=== PATIENT | male | born 2000 | race Caucasian/White ===

== ENCOUNTER 2022-03-23 04:25 | Day surgery (SDC) | payer BC, OTHER ==
[2022-03-21 12:41] VITALS: BMI 26.1
[2022-03-23] MEDS ORDERED: LIDOCAINE HCL 1%, 10 MG/ML (20ML VIAL) ONE (11:39)
[2022-03-23] MEDS ORDERED: MIDAZOLAM HCL 2 MG/2 ML SINGLE DOSE VIAL ONE ×2 (12:04→12:21)
[2022-03-23] MEDS ORDERED: GLYCOPYRROLATE 0.2 MG/1 ML VIAL ONE (12:05)
[2022-03-23] MEDS ORDERED: ceFAZolin SODIUM 1 GM VIAL ONE (12:20)
[2022-03-23] MEDS ORDERED: SODIUM CHLORIDE 0.9% P/F 10 ML VIAL IJ ONE (12:20)
[2022-03-23] MEDS ORDERED: ceFAZolin SODIUM 1 GM VIAL IVPB ONE ×2 (12:20→12:21)
[2022-03-23] MEDS ORDERED: METHYLENE BLUE 50 MG/10 ML AMPUL ONE (12:25)
[2022-03-23] MEDS ORDERED: PROPOFOL 20 ML ONE (12:28)
[2022-03-23] MEDS ORDERED: LIDOCAINE HCL/PF 2% SDV 5ML VIAL ONE (12:28)
[2022-03-23] MEDS ORDERED: oxyCODONE HCL 5 MG TABLET PO PRN (13:16)
[2022-03-23] MEDS ORDERED: ONDANSETRON 4 MG/2 ML VIAL IVPUSH PRN (13:16)
[2022-03-23] MEDS ORDERED: PROMETHAZINE HCL 25 MG/1 ML VIAL IVPB PRN (13:16)
[2022-03-23] MEDS ORDERED: LACTATED RINGERS SOLUTION 1,000 ML IV SCH (13:30)
[2022-03-23] MEDS ORDERED: ONDANSETRON 4 MG/2 ML VIAL ONE (15:30)
[2022-03-23 18:08] VITALS: BP 120/52; PULSE 66; RESP 16; TEMP 97.8
== END 2022-03-23 16:45 | disposition home or self-care (01) ==
LOC: JASU-SURG 04:25
PROVIDERS: ATTEND Surgery
PROC: 0JB90ZZ Excision of Buttock Subcutaneous Tissue and Fascia, Open Approach (ICD-10-PCS; principal; 2022-03-23 10:00)
DX: L05.91 Pilonidal cyst without abscess (principal)
CPT/HCPCS: 88304-TC; 94760; Q9968